=== PATIENT | female | born 2000 | race Two or more races ===

== ENCOUNTER 2022-09-24 23:28 | Emergency (ER) | payer MEDICAID ==
[~2022-09-24] VITALS: Ht 162.6 cm; Wt 70.8 kg
[2022-09-24 23:40] VITALS: BP 127/83; PULSE 88; RESP 16; O2SAT 100
[2022-09-25 00:42] LABS: Basophils # (auto) 0 10 ^3/uL (0-0.2); Basophils % (auto) 0.3 % (0.0-2.0); Eosinophils # (auto) 0.1 10 ^3/uL (0-0.8); Eosinophils % (auto) 0.8 % (0.0-7.0); Hematocrit 39.8 % (36.0-46.0); Hemoglobin 13.5 g/dL (12.2-16.2); Lymphocytes # (auto) 2.2 10 ^3/uL (0.4-5.4); Lymphocytes % (auto) 24.3 % (10.0-50.0); Mean Corpuscular Hemoglobin 29.4 pg (28.0-32.0); Mean Corpuscular Hgb Conc. 33.8 g/dL (32.0-36.0); Mean Corpuscular Volume 87.2 fL (80.0-100.0); Monocytes # (auto) 0.6 10 ^3/uL (0-1.3); Monocytes % (auto) 6.7 % (0.0-12.0); Neutrophils # (auto) 6.3 10 ^3/uL (1.6-8.6); Neutrophils % (auto) 67.9 % (37.0-80.0); Nucleated Red Blood Cells % 0.2 %; Red Blood Cells 4.57 10^6/uL (4.0-5.20); Red Cell Distribution Width 13.5 % (11.8-14.3); White Blood Cell 9.3 10^3/uL (4.4-10.8)
[2022-09-25 00:49] LABS: Urine Amorphous Crystal FEW /hpf (None Seen); Urine Bacteria NONE SEEN /hpf (None Seen); Urine Blood 2+ /uL (Negative); Urine Specific Gravity 1.009 (1.001-1.035); Urine WBC 13 /hpf (0 - 5)
[2022-09-25 00:59] LABS: Albumin 3.8 g/dL (3.4-5.0); BUN/Creatinine Ratio 9.4 (10.0-20.0)
[2022-09-25 01:13] LABS: Bilirubin, Total 0.3 mg/dL (0.2-1.0); Potassium 3.7 mmol/L (3.5-5.1); Total Protein 7.8 g/dL (6.4-8.2)
== END 2022-09-25 01:47 | disposition left against medical advice (07) ==
LOC: ER 23:28
DX: O20.9 Hemorrhage in early pregnancy, unspecified (principal); Z3A.12 12 weeks gestation of pregnancy; Z53.21 Procedure and treatment not carried out due to patient leaving prior to being seen by health care provider
CPT/HCPCS: 36415; 76801; 80053; 81001; 84702; 85025